=== PATIENT | male | born 1960 | race Caucasian/White ===

== ENCOUNTER 2017-11-26 06:34 | Observation (INO) | payer OTHER ==
[~2017-11-26] VITALS: Ht 182.9 cm; Wt 115.7 kg
--- OUTSIDE RECORDS SUMMARY | ~2017-11-26 | XMS | Clinical Summary ---
Demographics + + + | Address | [address] | | | [place] [address] | + + + | Home Phone | | + + + | Preferred Language | Unknown | + + + | Marital Status | Single | + + + | Cheondoism Affiliation | Unknown | + + + | Race | Unknown | + + + | Ethnic Group | Other Race | + + + Author + + + | Author | [facility] | + + + | Organization | [facility] | + + + | Address | Unknown | + + + | Phone | Unavailable | + + + Care Team Providers + +------+ + | Care Cleaner Laboratory Equipment Name | Role | Phone | + +------+ + PP | Unavailable | + +------+ + Source Comments LEIA is fully live on both [facility] and [facility] InPatient.[facility] Allergies Not on File Current Medications Not on file Active Problems Not on file Social History + +-------+ +--------+------+ | Tobacco Use | Types | Packs/Day | Years | Date | | | | | Used | | + +-------+ +--------+------+ | Never Assessed | | | | | + +-------+ +--------+------+ + + + | Sex Assigned at | Date Recorded | | | | + + + | Not on file | | + + + Plan of Treatment + + + + + | Health Maintenance | Due Date | Last Done | Comments | + + + + + | INFLUENZA VACCINE | | | | | (FLU SHOT) | 7 | | | + + + + + Results Not on filefrom Last 3 Months"
--- OUTSIDE RECORDS SUMMARY | ~2017-11-26 | XMS | Clinical Summary ---
Demographics + + + | Address | [address] | | | [place] [address] | + + + | Home Phone | | + + + | Preferred Language | Unknown | + + + | Marital Status | Single | + + + | Mandaeism Affiliation | Unknown | + + + | Race | Unknown | + + + | Ethnic Group | Other Race | + + + Author + + + | Author | [facility] | + + + | Organization | [facility] | + + + | Address | Unknown | + + + | Phone | Unavailable | + + + Care Team Providers + +------+ + | Care Owner/Operator Name | Role | Phone | + +------+ + PP | Unavailable | + +------+ + Source Comments LEIA is fully live on both [facility] and [facility] InPatient.[facility] Allergies Not on File Current Medications Not [...]
[~2017-11-26 06:34] MED LIST: CO Q-10100 MG PO; FLUVASTATIN SOD40 MG PO; VOLTAREN100 GM TOP
[2017-11-26] MEDS ORDERED: BAYER CHEWABLE81 MG PO (12:15)
[2017-11-26] MEDS ORDERED: MULTIVITAMINS1 EAC8 PO (12:16)
[2017-11-26] MEDS ORDERED: FISH OIL 1,0001 EAC2 PO (12:16)
--- NOTE | 2017-11-26 12:55 | NUR ---
PATIENT HERE TODAY FOR PREADMISSION APPOINTMENT. PATIENT IS SCHEDULED TO HAVE A RIGHT TOTAL KNEE REPLACMENT ON 12/09/17. HE STATES HIS WANDER OR MOTHER SADIE WILL BE HERE TO TRANSPORT HIM HOME AND GET HIM TO APPOINTMENTS. HE HAS A PHYSICAL THERAPY APPOINTMENT SET UP AT THE [facility] ON 11/27/17 AND WOULD LIKE TO CONTIUNE WITH PHYSICAL THERAPY POST OP THERE. HE HAS THREE STEPS INTO THE HOME WITH A HAND RAIL ON THE RIGHT SIDE. THERE ARE NO STAIRS INSIDE THE HOME. HE HAS A WALK IN SHOWER AND WILL LOOK INTO GETTING A SHOWER CHAIR AND HAND HELD SHOWER HEAD. HE STATES HE HAS A FRONT WHEELED WALKER THAT HIS WILL BRING IN ONCE HE IS ON THE MEDICAL FLOOR. THIS INFORMATION WILL BE SENT TO DR CORONA OFFICE AND TO [facility] FOR FURTHER FOLLOW UP.
--- NOTE | 2017-12-09 08:56 | NUR ---
12/09/17 0856 Netta Orozco 0836 PT ARRIVED ASLEEP, REPORT FROM ELECTRIC MULE OPERATOR. CYRO CUFF AND FOOT SCD PLACED ON RIGHT KNEE AND RIGHT FOOT. PT REACTIVE BUT VERY DROWSY. REORIENTED TO PACU. RESP EVEN AND UNLABORED. 0845 PT DDENIES PAIN AND NAUSEA. PT UNABLE TO FEEL OR MOVE TOES ON RIGHT FOOT. PT BACK TO SLEEP. VSS.
--- NOTE | 2017-12-09 09:45 | NUR ---
PT ARRIVED FROM PACU. PT AWAKE AND RESPONDING TO QUESTIONS. PT DENIES PAIN AND NAUSEA. PT TOLERATING PO WATER AND REQUESTS JELLO. PT UPDATED ON PLAN OF CARE AND VERBALIZES UNDERSTANDING. CRYO CUFF, SCD'S, HEEL PROTECTORS IN PLACE. AT BEDSDIE. BED RAILS UP. CALL LIGHT WITHIN REACH. PT HAS NO ADDITIONAL REQUESTS OR COMPLAINTS AT THIS TIME.
--- NOTE | 2017-12-09 10:53 | NUR ---
VITALS DUE. TORDOL DUE. PT VISITING WITH AND GUEST AT BEDSIDE. PT USING INCENTIVE SPIROMETER. VITALS TAKEN. ROOM AIR TRIAL ATTEMPTED. PT DROPS TO 89% ON ROOM AIR. 1L O2 TRIED. PT MAINTAINS AT 90% ON 1 L NC. PT RETURNED TO 2L O2 NC. PT MAINTAINING ABOVE 96% ON 2 L NC. PT TOLERATING PO JELLO AND CONTINUES TO DENY PAIN AND NAUSEA. PT VERBALIZES UNDERSTANDING OF PLAN OF CARE. BED RAILS UP. CALL LIGTH WITHIN REACH. PT STATES NO ADDITIONAL REQUESTS OR COMPLAINTS AT THIS TIME.
--- NOTE | 2017-12-09 11:45 | NUR ---
VITALS TAKEN. PT VISITING WITH . PT CONTINUES TO DENY PAIN AND NAUSEA. DIET PROGRESSED. PT TOLERATING CRACKERS AND PUDDING W/O NAUSEA. ROOM AIR TRIAL BEGAIN. PT MAINTAINING O2 SATURATIONS ABOVE 92% ON ROOM AIR. SPINAL RESOLVED. PT REPORTS "ONLY A LITTLE TINGLING" IN HIS FEET. PHYSICAL THERAPY PLANS TO GET PT UP LATER TODAY. ICE REPLACED IN CRYO CUFF. PT HAS NO ADDITIONAL REQUESTS OR COMPLAINTS AT THIS TIME. BED RAILS UP. CALL LIGHT WITHIN REACH.
--- NOTE | 2017-12-09 13:00 | NUR ---
PATIENT SITTING UP IN BED. CALL BUTTON REACH. FRESH ICE WATER GIVEN. ICE IN CRYO. VISITORS IN ROOM. NO OTHER NEEDS AT THIS TIME.
--- NOTE | 2017-12-09 13:56 | NUR ---
PT HAVING INSTRUCTION FROM Nadine VISITED WITH HEMANT. Adilson PLEASANT VISIT, EXTENDED A BLESSING TO THEM BOTH, WILL CONTINUE TO FOLLOW.
--- NOTE | 2017-12-09 14:15 | NUR ---
PT RESTING IN BED, INVITED ME IN. HEMANT IN RM. PT ALERT AND ORIENTED, AND DENIES PAIN AT THIS TIME. DISCUSSED PAIN CONTROL, HIS MENTIONED TO ME THAT SHE FEELS THAT MIGHT BE AN ISSUE. GOOD VISIT, PT REQUESTED PRAYER. WILL CONTINUE TO FOLLOW NEEDED
--- NOTE | 2017-12-09 14:44 | NUR ---
BLADDER SCAN DUE. PT REMAINS UNABLE TO VOID INDEPENDANTLY, OCCATIONAL INCONTENANCE. BLADDER SCAN PERFORMED. = 768ML. RIDDLE CATHETER ORDER REVIEWED. PT EDUCATION DONE. PT VERBALIZES UNDERSTANDING OF PROCEDURE AND STATES HIS QUESTIONS HAVE BEEN ANSWERED. MEDICATIONS GIVEN ORDERED. RIDDLE CATHETER PLACED PER PROTOCOL. 760ML OF YELLOW/ORANGE FLUID OBTAINED FROM RIDDLE CATHETER. PT TOLERATED PROCEEDURE WELL. CATHETER BALLOON INFLATED WITH 10ML. CATHETER SECURED WITH SECUREMENT DEVICE. PT WORKING WITH INCENTIVE SPIROMETER. PT STATES NO QUESTIONS OR CONCERNS AT THIS TIME. BED RAILS UP. CALL LIGHT WITHIN REACH.
--- NOTE | 2017-12-09 15:14 | NUR ---
PT PULSE OX ALARMING, PT STATES IT IS "ALARMING ALL THE TIME WHEN I TRY TO SLEEP." PULSE OX AT 88-89 WHEN PT DRIFTS OFF TO SLEEP. PT STARTED ON 2L O2 NC. PT MAITAINING ABOVE 90%. PT RESTING WITH EYES CLOSED. RR = 14 BPM. BED RAILS UP CALL LIGHT WITHIN REACH.
--- NOTE | 2017-12-09 15:27 | NUR ---
THIS RN ATTEMPTED TO CALL PTS TO BRING HIM HOME FLUVASTATIN. NO ANSWER AT THIS TIME.
--- NOTE | 2017-12-09 16:11 | NUR ---
PATIENT RESTING IN BED WITH EYES CLOSE. CALL BUTTON IN REACH. ICE IN CRYO. IN ROOM. NO OTHER NEEDS AT THIS TIME.
--- NOTE | 2017-12-09 17:01 | NUR ---
PT ARRIVED TODAY AFTER RIGHT TKA. DRESSING CDI. SPINAL RESOLVED. PT DENIES PAIN AND NAUSEA. PT UNABLE TO VOLUNTARILY VOID. INCONTINANT X2. BLADDER SCAN YEILDS 768ML. RIDDLE CATHETER PLACED, DRAINING TO GRAVITY. PHYSICAL THERAPY CONSULTED, PT HAS NOT BEEN OUT OF BED YET. PT MAINTAINS O2 SATURATION WHILE AWAKE BUT DESTATS WHEN SLEEPING. MAY NEED OXYGEN TONIGHT. 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 PT AND PARTICIPATING IN CARE. PTS TO BRING IN HOME MEDICATION (FLUVASTATIN) FOR USE TOMORROW).
--- NOTE | 2017-12-09 17:02 | NUR ---
PT REQUESTED TO HAVE OXYGEN OFF, PT OXYGEN SATURATION 94% ON ROOM AIR, NO CHANGE WHEN OXYGEN REMOVED, WILL MONITOR CLOSE. PT HAS CONTINUOUS PULSE OXIMETRY ON AT BEDSIDE TO ALARM.
--- NOTE | 2017-12-09 18:32 | NUR ---
PATIENT RESTING IN BED WITH EYES CLOSED. FRESH ICE WATER GIVEN. ICE IN CRYO. CALL BUTTON IN REACH. NO OTHER NEEDS AT THIS TIME.
--- NOTE | 2017-12-09 19:05 | NUR ---
RECEIVED REPORT FROM RN. PATIENT IS RESTING IN BED, BREATHING IS EVEN AND UNLABORED. O2 SATURATION IS 97% ON 2L O2 VIA NC. DENIES PAIN AT THIS TIME, HAS NO NEEDS. CALL LIGHT WITHIN REACH.
--- NOTE | 2017-12-09 22:15 | NUR ---
PATIENT RESTING COMFORTABLY IN BED, BREATHING IS EVEN AND UNLABORED. O2 SATURATION IS 95% ON 2L O2 VIA NC, PULSE IS 75. REPORTS 0/10 PAIN AT THIS TIME. ASSESSMENT DONE, MEDICATIONS GIVEN. CRYO-CUFF REFILLED. CALL LIGHT WITHIN REACH.
--- NOTE | 2017-12-09 23:18 | NUR ---
PATIENT RESTING COMFORTABLY IN BED, BREATHING IS EVEN AND UNLABORED. FLACC SCORE OF 0. O2 SATURATION IS 93% ON 2L O2, PULSE IS 73. CALL LIGHT WITHIN REACH, ALL ORDERS IN PLACE.
--- NOTE | 2017-12-10 02:45 | NUR ---
PATIENT RESTING COMFORTABLY IN BED, BREATHING IS EVEN AND UNLABORED. O2 SATURATION IS 92% ON 2L O2, PULSE IS 71. FLACC SCORE OF 0. CALL LIGHT WITHIN REACH, ALL ORDERS IN PLACE.
--- NOTE | 2017-12-10 04:54 | NUR ---
PATIENT RESTING COMFORTABLY IN BED, BREATHING IS EVEN AND UNLABORED. DENIES PAIN AT THIS TIME. ASSESSMENT DONE, MEDICATIONS GIVEN. CALL LIGHT WITHIN REACH, ALL ORDERS IN PLACE.
--- NOTE | 2017-12-10 05:02 | NUR ---
PATIENT'S NIGHT WAS UNEVENTFUL. HE HAS BEEN RESTING IN BED THROUGHOUT SHIFT. VSS, NO COMPLAINTS OF PAIN. ALERT AND ORIENTED, CALLS APPROPRIATELY. WEARS 2L O2 AT NIGHT, LUNGS ARE CLEAR. PATIENT HAS RIDDLE IN PLACE, WILL REMOVE THIS AM. PATIENT'S URINE OUTPUT HAS BEEN BORDERLINE LOW, ENCOURAGED PO FLUID INTAKE. DRESSING REMAINS CDI, CMS INTACT. IV IS SALINE LOCKED. NO ACUTE CHANGES FROM BEGINNING OF SHIFT.
--- NOTE | 2017-12-10 06:48 | NUR ---
PATIENT RESTING COMFORTABLY IN BED, BREATHING IS EVEN AND UNLABORED. REPORTS 1/ PAIN. DENIES NEEDS. CALL LIGHT WIHTIN REACH.
--- NOTE | 2017-12-10 07:23 | NUR ---
updated dr. walker regarding patient's low uring output. no new orders at this time.
--- NOTE | 2017-12-10 08:17 | NUR ---
MORNING ASSESSMENT AND MEDICATIONS DUE. PT SITTING UP IN BED, FINISHED WITH BREAKFAST. PT REPORTS 1/ PAIN THAT "ISN'T THAT BAD." PT DENIES NAUSEA. RIDDLE CATHETER WAS REMOVED BY LEANDRA HAAS AT 0650. PT DUE TO VOID. PT USING IS. ROOM AIR TRIAL BEGAN. PT MATAINING O2 ABOVE 90% ON ROOM AIR. ASSESSMENT DONE. MEDICATIONS GIVEN ORDERED (SEE MAR). PAIN MEDICATION GIVEN IN ANTICIPATION OF PHYSICAL THERAPY. RT AT BEDSIDE FOR CONSULTATION. CRYO CUFF, SCD'S, EMILIO HOSE, AND HEAL PROTECTORS IN PLACE. BED RAILS UP. CALL LIGTH WITHIN REACH. CO Q 10 NOT GIVEN AT THIS TIME BECAUSE IS BRINGING IN THE MEDICATION. MEDICATION TO BE GIVEN ONCE IT ARRIVES.
--- NOTE | 2017-12-10 08:35 | NUR ---
PT IN ROOM WORKING WITH PATIENT. NO NEEDS AT THIS TIME.
--- NOTE | 2017-12-10 09:26 | NUR ---
PATIENT UP IN CHAIR RESTING. ORAL CARE DONE. PATIENT JUST GOT DONE WORKING WITH PT. PATIENT STATES THAT HIS PAIN LEVEL IS A 1 OUT OF 10. LINENS CHANGED. BED BATH SET UP FOR PATIENT. CALL BUTTON WITHIN REACH. NO OTHER NEEDS AT THIS TIME.
--- NOTE | 2017-12-10 10:08 | NUR ---
MEDICATIONS DUE. PT UP TO CHAIR. REPORTS 1/10 PAIN AND DENIES NASUEA. PT REPORTS WALKING "AROUND THE YAN AND UP THE STAIRS" WITH PHYSICAL THERAPY WITH MINIMAL DISCOMFORT. MEDICATIONS GIVEN. AT BEDSIDE. ASKED IF SHE BROUGHT HOME MEDICATIONS. MEDICATIONS GIVEN TO THIS RN. MEDICATIONS PASSED TO PHARMACY FOR CHECKING AND DOSING. PT REMAINS IN CAHIR. CALL LIGHT WITHIN REACH. NO REQUESTS OR COMPLAINTS A THIS TIME. PT MAINTAINING AT 95% O2 SATURATION ON ROOM AIR.
--- NOTE | 2017-12-10 12:11 | NUR ---
THIS RN TO ROOM FOR FOCUSED ASSESSMENT. PT STATES HE HAS BEEN UNABLE TO VOID. PT ASSISTED UP TO RESTROOM WHERE HE VOIDS 50ML. BLADDER SCAN PERFORMED SHOWING 0ML, CONFIRMED BY 2ND RN. PT ASSISTED BACK TO CHAIR. FLUIDS ENCOURAGED. PAIN MEDICATION GIVEN FOR 2/10 PAIN AND ANTICIPATION OF PHYSICAL THERAPY. PT VISITING WITH . CALL LIGHT AND PERSONAL BELONGINGS WITHIN REACH.
--- NOTE | 2017-12-10 13:03 | NUR ---
PATIENTSITTING UP IN CHAIR READING A BOOK. FRESH ICE WATER GIVEN. ICE IN CRYO. CALL BUTTON IN REACH. PATIENT STATES HIS PAIN IS A 1 OUT OF 10. NO OTHER NEEDS AT THIS TIME. IN ROOM TO SEE PATIENT. IN ROOM.
--- NOTE | 2017-12-10 13:13 | NUR ---
PT SITTING IN CHAIR-ALERT, ORIENTED AND SUPPORTED BY AND MOTHER. PT RESTED WELL LAST NIGHT, AND P.T. TODAY WENT WELL IN HIS ESTIMATION. PT IS MOTIVATED TO LEAVE SOON POSSIBLE. EXTENDED A BLESSING, WILL FOLLOW NEEDED
--- NOTE | 2017-12-10 14:06 | NUR ---
TYLENOL DUE. PT ASSISTED UP TO RESTROOM. ABLE TO VOID INDEPENDANTLY, 100ML ORANGE URINE. PT PASSING GAS BUT NO BM AT THIS TIME. PT BACK TO CHAIR WITHOUT INCIDENT. TYLENOL GIVEN ORDERED (SEE MAR). CRYO CUFF IN PLACE. PULSE OX ON. PT STATES NO ADDITIONAL REQUESTS OR COMPLAINTS AT THIS TIME.
--- NOTE | 2017-12-10 16:05 | NUR ---
PAIN MEDICATION DUE. PT REPORTS 2/10 PAIN AND REQUESTS 10MG "THIS TIME." ASSESSMENT PERFORMED. DRESSING CDI. PT UP TO RESTROOM. VOIDS 300ML WITHOUT ISSUE. PT BACK TO CHAIR. DENIES WORSENING PAIN, DENIES NASUEA. MEDICATIONS GIVEN (SEE MAR). PT RESING IN CHAIR WORKING ON "MY PHYSICAL THERAPY APPOINTMENTS." CRYO CUFF REFILLED WITH ICE AND BACK ON PT. PT STATES NO ADDITIONAL REQUESTS OR COMPLAINTS AT THIS TIME.
--- NOTE | 2017-12-10 16:21 | NUR ---
PT HERE FOR RIGHT TOTAL KNEE REPLACEMENT. PT REPORTS 1-2/10 PAIN TODAY AND CONTINUES TO DENY NAUSEA. PAIN MEDICATIONS GIVEN Q4 HOURS AND SCHEDULED MEDS. PT TOLERATING REGULAR DIET WELL. PT UP WITH PHYSICAL THERAPY X2 TODAY, TOLERATED WELL. PT VOIDING VOLUNTARILY. CONTINUE TO MONITOR FOR URINE OUTPUT. ENCOAURGE FLUIDS. PT 1 PERSON STAND BY ASSIST WITH FWW. SALINE LOCK RIGHT HAND, WNL.
--- NOTE | 2017-12-10 17:18 | NUR ---
PATIENT IS RESTING IN CHAIR WATCHING TV. PATIENTS IN ROOM. FRESH ICE WATER. CHECKED CRYO, PATIENT STATED IT WAS JUST FILLED WITH ICE. CALL BUTTON WITHIN REACH. NO OTHER NEEDS AT THIS TIME.
--- NOTE | 2017-12-10 19:15 | NUR ---
RECEIVED REPORT FROM RN. PATIENT IS RESTING COMFORTABLY IN CHAIR TALKING WITH FAMILY. ASSISTED TO BATHROOM WITH SBA/FWW. DENIES FURTHER NEEDS. CALL LIGHT ALICIAHTIN MERVIN.
--- NOTE | 2017-12-10 19:15 | NUR ---
HAND OFF REPORT GIVEN TO LEANDRA HAAS. PT REQUESTS ASSISTANCE UP TO RESTROOM. VOIDS WITHOUT ISSUE. PT BACK TO BED. CRYO CUFF, SCD'S, HEEL PROTECTORS. IN PLACE. BED RAILS UP. CALL LIGTH WITHIN REACH. FAMILY AT BEDSIDE.
--- NOTE | 2017-12-10 20:59 | NUR ---
PATIENT GIVEN PRN PAIN MEDICATION PER ORDER FOR 4/10 PAIN IN HIS RIGHT KNEE. PATIENT ASSISTED TO THE RESTROOM A SBA W/FWW. PATIENT TOLERATED AMBULATION WELL. PATIENT IS NOW BACK IN BED RESTING. PATIENT DENIES ANY FURTHER NEEDS. CALL LIGHT IN REACH. CRYO IN PLACE, SCDS ON AND PULSE OX IN USE.
--- NOTE | 2017-12-10 21:30 | NUR ---
PATIENT RESTING IN BED, BREATHING IS EVEN AND UNLABORED. O2 SATURATION IS 96% ON ROOM AIR. REPORTS 3/10 PAIN. SCHEDULED PAIN MEDICATION GIVEN. ASSESSMENT DONE. PATIENT DENIES FURTHER NEEDS. CALL LIGHT WITHIN REACH, ALL ORDERS IN PLACE.
--- NOTE | 2017-12-10 23:47 | NUR ---
PATIENT ASSISTED TO BATHROOM WITH 1PA/FWW. REPORTS 2/10 PAIN IN RIGHT KNEE. DENIES FURTHER NEEDS AT THIS TIME. NOW RESTING IN BED COMFORTABLY, BREATHING IS EVEN AND UNLABORED. O2 SATURATION IS 95% ON 2L, REQUIRES O2 WHILE ASLEEP. CALL LIGHT WITHIN REACH, ALL ORDERS IN PLACE.
--- NOTE | 2017-12-11 02:38 | NUR ---
PATIENT ASSISTED TO THE RESTROOM. PATIENT IS A SBA W/FWW. PATIENT WAS ABLE TO VOID. PATIENT IS NOW BACK IN BED RESTING. PATIENT HAS SCDS IN PLACE AND HEEL PROTECTORS ON. PATIENT HAS CRYO APPLIED TO HIS RIGHT KNEE. PATIENT GIVEN PRN PAIN MEDICATION FOR 4/10 PAIN IN HIS RIGHT KNEE. PATIENTS ICE WATER REFILLED. PATIENT DENIES ANY FURTHER NEEDS. CALL LIGHT IN REACH.
--- NOTE | 2017-12-11 04:40 | NUR ---
PATIENT RESTING COMFORTABLY IN BED, BREATHING IS EVEN AND UNLABORED. REPORTS 2/10 PAIN IN RIGHT KNEE, TORDOL GIVEN PER EMAR. DENIES FURTHER NEEDS. CALL LIGHT WITHIN REACH.
--- NOTE | 2017-12-11 06:13 | NUR ---
PATIENT RESTING COMFORTABLY IN BED, BREATHING IS EVEN AND UNLABORED. O2 SATURATION IS 93% ON ROOM AIR. REPORTS 2/10 PAIN IN RIGHT KNEE. PRN OXYCODONE AND SCHEDULED TYLENOL GIVEN. DENIES FURTHER NEEDS. CALL LIGHT WITHIN REACH.
--- NOTE | 2017-12-11 06:26 | NUR ---
ASSISTED PATIENT TO BATHROOM WITH SBA/FWW. TOLERATED WELL. NOW RESTING IN CHAIR, BREATHING IS EVEN AND UNLABORED. DENIES FURTHER NEEDS AT THIS TIME. CALL LIGHT WITHIN REACH.
[2017-12-11] MEDS ORDERED: XARELTO10 MG PO (07:26)
[2017-12-11] MEDS ORDERED: OXYCODONE HCL5 MG PO (07:26)
[2017-12-11] MEDS ORDERED: MIRALAX17 GM PO (07:27)
--- NOTE | 2017-12-11 07:30 | NUR ---
ROUNDED WITH DR. CORONA IN ROOM. DISCHARGE PLANS DISCUSSED. DR. CORONA D/C'D PRESSURE DRESSING AT THIS TIME. PATIENT STATING PAIN 11/16. NEW DRESSING OF MEPILEX AND ODILIA WRAP APPLIED. KNEE HIGH EMILIO APPLIED. PATIENT TOLERATED WELL. BROUGHT A CUP OF COFFEE TO PATIENT. PATIENT CURRENTLY SITTING UP IN CHIAR WITH LEGS UP.
--- NOTE | 2017-12-11 07:40 | NUR ---
PATIENT SITTING UP IN CHAIR, FRESH COFFEE AND ICE WATER GIVEN. PATIENT WOULD LIKE TO DO AM CARE AFTER BREAKFAST. DR WAS JUST IN AND REMOVED BANDAGE. CALL LIGHT IN REACH. NO OTHER NEEDS
--- NOTE | 2017-12-11 08:04 | NUR ---
FAXED CHART NOTES AND ORDER TO [facility] OP PT. THESE INCLUDED FACESHEET, ORDER H AND P X 2, PROG NOTES, PT AND OT EVAL AND NOTES TO [facility] OP PT. CALLED AND CONFIRMED THIS WITH DANIEL AT [facility] OP PT. RECIEVED FAX CONFIRMATION.
--- NOTE | 2017-12-11 08:32 | NUR ---
patient sitting in chair. legs up. morning medication given. patient stating pain continues to be at 2/10. plan of care discussed. plan to work with pt at 0900ish and have more pain medication before and after pt. patient requesting to wait for his for discharge instructions. she will be here this afternoon. patient tolerated 100 percent of breakfast. patient stating he has not had a stool yet, educated about stool softener at discharge. miralax given this am.
--- NOTE | 2017-12-11 08:55 | NUR ---
PATIENT CURRENTLY WORKING WITH PT IN TREATMENT ROOM. TOLERATING WELL.
--- NOTE | 2017-12-11 09:35 | NUR ---
TORADOL GIVEN. PATIENT TOLERATED PT WELL. STATING PAIN AFTER HIS WORKOUT WAS 2/10. PATIENT SITTING IN CHAIR. SET UP WITH TOOTH BRUSH AND CLOTH FOR WASHING FACE. NO OTHER NEEDS AT THIS TIME.
--- NOTE | 2017-12-11 10:11 | NUR ---
PATIENT SITTING IN CHAIR, EYES CLOSED. VITALS DONE, RN CAYLA IN ROOM TO TALK ABOUT DISCHARGE. CRYO FILLED. CALL LIGHT IN REACH. NO OTHER NEEDS.
--- NOTE | 2017-12-11 10:29 | NUR ---
PATIENT STATING HE IS COMFORTABLE AT THIS TIME. WOULD LIKE TO HOLD OFF ON PAIN MEDICATION UNTIL TIME TO DISCHARGE. WAITING PATIENTS BEFORE DISCHARGE EDUCATION TO BE GIVEN.
--- NOTE | 2017-12-11 10:59 | NUR ---
PATIENT ASSISTED TO THE BR. PATIENT VOIDED. ASSISTED BACK TO BED. CHANGED INTO OWN CLOTHING. IV TAKEN OUT. AWAITING AT THIS TIME.
--- NOTE | 2017-12-11 11:10 | NUR ---
PT SITTING IN CHAIR-READY TO BE DC'D. HE MENTIONED THAT HE THOUGHT P.T. WENT WELL THIS AM. STAIRS NO PROBLEM, HE DOESNOT DO WELLL SITTING STILL. PT ALSO MENTIONED THAT HE GOT VERY LITTLE SLEEP LAST NIGHT. VERY POSITIVE-SHOULD REHAB WELL , VERY MOTIVATED. GOD BLESS HIM
--- NOTE | 2017-12-11 12:18 | NUR ---
PHARMACY IN ROOM TO GO OVER DISCHARGE MEDICATIONS WITH PATIENTS.
--- NOTE | 2017-12-23 07:09 | OR ---
[facility] [address] [place] [address] Signed DATE OF OPERATION: 12/09/2017 SURGEON: Moraima Roper MD PREOPERATIVE DIAGNOSIS: Severe degenerative joint disease, both knees. POSTOPERATIVE DIAGNOSIS: Severe degenerative joint disease, both knees. PROCEDURE PERFORMED: Right total knee arthroplasty with computer navigation. BOXING INSTRUCTOR: Alexandria Noriega PA-C. Alexandria was present in critical positioning, retraction, and wound closure. ANESTHESIA: Spinal. BLOOD LOSS: Minimal. TOURNIQUET TIME: 59 minutes. IMPLANTS: Hallie Triathlon size #7 with 11 mm insert and 35 mm patella. BRIEF HISTORY: Albert is a 57-year-old gentleman with progressive worsening of arthritis and complete loss of medial cartilage. Risks and benefits of operative treatment were discussed with him and he elected to proceed. DESCRIPTION OF PROCEDURE: Once consent was obtained, he was taken to the operating room. After adequate anesthesia, he was placed on the operating room table. All downside pressure points well padded. The left hip was placed on a bump and a tourniquet was placed around the proximal thigh. The leg was then prepped and draped in a standard sterile fashion. The leg was exsanguinated using Esmarch bandage. Tourniquet inflated to 250 mmHg. The Electronically Signed By: MORAIMA ROPER MD 12/23/17 0709 PATIENT NAME: ALBERT SCHUMACHER DERRICK OPERATIVE REPORT DATE OF : 64 REPORT #: [id number] PHYSICIAN: MORAIMA ROPER MD PCP: ANKIT ANTUNEZ DO REPORT IS CONFIDENTIAL AND NOT TO BE RELEASED WITHOUT AUTHORIZATION [facility] [address] [place], [place] [address] Signed patient was not given any preoperative due to a history of heterozygosity for Factor V Leiden disease. The knee was approached through standard anterior curved incision and was taken through the skin and subcutaneous tissue, and median parapatellar arthrotomy was performed. The infrapatellar fat pad was excised and the MCL was elevated of a sleeve subperiosteally around the level of the posterior corner. The anterior horns of the menisci were transected. The PCL was found to be intact. The ACL was transected. The knee was then flexed. Navigation guide was pinned to the femur and the femur was registered with the computer. The cutting block was then pinned in neutral alignment and the distal femoral cut was made. The bone quality was quite good. The femur was then sized to a #7. The #7 AP cutting block was pinned in alignment with epicondylar axis and the anterior, posterior, and chamfer cuts were made. The bone was excised as were any remaining osteophytes. Attention was then turned to proximal tibia. The navigation guide was pinned to the proximal tibia and the tibia was registered with the computer. The cut was made with care taken to protect the patellar tendon and MCL. Bone was excised as were any meniscal remnants. Posterior release was performed off the femur. Posterior osteophytes removed. Flexion and extension gaps were sized, found to be symmetric at 11 mm. The trials were positioned. The knee was taken through range of motion and found to be quite stable. The patella was cut, sized, and drilled for 35 patella. The drill holes on the distal femur were then made and the trials removed. The proximal tibia was finished using the keel punch. The bone surfaces were pulse lavaged and packed with dry Ray-Ernie. The cement was then mixed and reached proper consistency, displaced all implants on all bone surfaces. The tibia was impacted into position first followed by the polyethylene. All excess cement was removed. The femur was impacted next and again any remaining cement was removed. The knee was extended and nicely loaded. The patella was clamped and any remaining cement was removed. The knee was pulse lavaged at intervals throughout the procedure. A total of 2 L antibiotic irrigation was used. The knee was flexed and the remaining cement was removed using osteotomes. The knee was injected with 100 mL ropivacaine and Toradol mixture in periarticular fashion. The arthrotomy was closed using #2 StrataFix, the subcutaneous tissue with 0 StrataFix, and the skin was then stapled. The wound was dressed with a Mepilex Ag dressing and a bulky Marroquin dressing again due to his bleeding disorder. He was awakened and taken to recovery in satisfactory condition. All sponge, needle, and instrument counts were correct. Moraima Roper MD BA/MODL /[id number] Electronically Signed By: MORAIMA ROPER MD 12/23/17 0709 PATIENT NAME: ALBERT SCHUMACHER OPERATIVE REPORT DATE OF : 64 REPORT #: [id number] PHYSICIAN: MORAIMA ROPER MD PCP: ANKIT ANTUNEZ DO REPORT IS CONFIDENTIAL AND NOT TO BE RELEASED WITHOUT AUTHORIZATION [address] [address] Signed Copies: ~ Electronically Signed By: MORAIMA ROPER MD 12/23/17 0709 PATIENT NAME: ALBERT SCHUMACHER DERRICK OPERATIVE REPORT DATE OF : 64 REPORT #: [id number] PHYSICIAN: MORAIMA ROPER MD PCP: ANKIT ANTUNEZ DO REPORT IS CONFIDENTIAL AND NOT TO BE RELEASED WITHOUT AUTHORIZATION
== END 2017-12-11 12:35 | disposition home or self-care (01) ==
LOC: MS 12-09 05:45 → DSVR 12-09 05:45 → MS 12-09 05:45 → EDSTATUS 12-09 06:45 → MS 12-09 06:45 → DSVR 12-09 09:38 → MS 12-11 12:35
PROVIDERS: ADMIT Specialist
PROC: 3E0T3BZ Introduction of Anesthetic Agent into Peripheral Nerves and Plexi, Percutaneous Approach (ICD-10-PCS; 2017-12-09)
PROC: 3E0T33Z Introduction of Anti-inflammatory into Peripheral Nerves and Plexi, Percutaneous Approach (ICD-10-PCS; 2017-12-09)
PROC: 8E0YXBZ Computer Assisted Procedure of Lower Extremity (ICD-10-PCS; 2017-12-09)
PROC: 0SRC0J9 Replacement of Right Knee Joint with Synthetic Substitute, Cemented, Open Approach (ICD-10-PCS; principal; 2017-12-09 06:45)
DX: M17.0 Bilateral primary osteoarthritis of knee (principal); G89.18 Other acute postprocedural pain; D68.51 Activated protein C resistance; E78.5 Hyperlipidemia, unspecified; Z88.0 Allergy status to penicillin; Z88.8 Allergy status to other drugs, medicaments and biological substances; Z79.82 Long term (current) use of aspirin; Z79.899 Other long term (current) drug therapy
CPT/HCPCS: 01402; 36415; 64447; 64450; 76942; 80048; 85025; 96374; 96375; 96376; 97110; 97116; 97163; 97530; C1713; C1776; G0378; J0690; J1100; J1885; J2250; J2274; J2704; J2795; J3010; J7120

== ENCOUNTER 2024-10-29 05:50 | Day surgery (SDC) | payer OTHER ==
[2024-10-26 14:39] VITALS: BP 92/62
[~2024-10-29] VITALS: Ht 182.9 cm; Wt 118.2 kg
[~2024-10-29 05:50] MED LIST changes: +BAYER CHEWABLE81 MG PO; +FISH OIL 1,0001 EAC2 PO; +GABAPENTIN600 MG PO; +LIPITOR40 MG PO; +MAPAP500 M1 PO; +MIDAZOLAM HCL 5 MG/5 ML VIAL IV PRN; +MIRALAX17 GM PO; +MULTIVITAMINS1 EAC8 PO; +OXYCODONE HCL5 MG PO; +SENNA LAX8.6 MG PO; +TAMSULOSIN HCL0.4 MG PO; +XARELTO10 MG PO; +fentaNYL citrate 100 MCG/2 ML VIAL IV PRN
[2024-10-29 06:06] VITALS: BP 143/96
[2024-10-29] MEDS ORDERED: LACTATED RINGER'S 1,000 ML IV SCH (07:00)
[2024-10-29] MEDS ORDERED: LIDOCAINE HCL 1% 5 ML SDV INJ ONE (07:00)
[2024-10-29] MEDS ORDERED: IBLOOD GLUCOSE TEST STRIP 1 EA TEST VI PRN (07:00)
[2024-10-29] MEDS ORDERED: CEFAZOLIN SODIUM 2 GM/20 ML SYR IV SCH (07:00)
[2024-10-29] MEDS ORDERED: propofoL 200 MG/20 ML VIAL ONE (07:15)
[2024-10-29] MEDS ORDERED: LIDOCAINE HCL 2% 5 ML SDV ONE (07:15)
[2024-10-29] MEDS ORDERED: fentaNYL citrate 100 MCG/2 ML VIAL ONE (07:16)
--- NOTE | 2024-10-29 07:18 | NUR ---
VISITED DURING SPIRITUAL CARE ROUNDS. PT SUPPORTED BY IN ROOM, NO IMMEDIATE NEEDS, NO OVERT SIGNS OF DISTRESS. KEG FILLER PROVIDED SUPPORTIVE PRESENCE, HOSPITALITY, PRAYER, FACILITATED INTERACTION WITH THERAPY ANIMAL. PT AND EXPRESSED GRATITUDE.
--- NOTE | 2024-10-29 07:50 | NUR ---
10/29/24 1043 Goldie Marquez 1934-PATIENT ARRIVED TO PACU NONAROUSABLE 6L MASK 93% RR EVEN. PATIENT DOES HAVE HISTORY OF SLEEP APNEA. PATIENT LAYING LEFT LATERAL ABDOMEN SOFT IVF INFUSING. SR.
[2024-10-29 08:34] VITALS: BP 112/70
--- NOTE | 2024-10-29 08:51 | OR ---
[facility] [address] [place], [place] [address] Signed DATE OF OPERATION: 10/29/2024 SURGEON: Rhiannon Hernandez MD PREOPERATIVE DIAGNOSES: 1. Screening. 2. Diverticulosis. 3. Internal anal skin tags. POSTOPERATIVE DIAGNOSES: 1. Fabgazo-al-lgyyvonm sigmoid diverticulosis. 2. Eoqpugv-sp-rsszwdfz anal skin tags x2. PROCEDURE: Colonoscopy without biopsy. ESTIMATED BLOOD LOSS: None. INDICATIONS: Albert is a 64-year-old gentleman asked to see me for a followup colonoscopy. I helped him with his initial screening colonoscopy in 2013 at the age of 54. He had internal anal skin tags and a little bit of diverticulosis. He has been on the 10 year plan. He has no family history of colon cancer or polyps. He has lower GI complaints. In the office, I did give him a pamphlet on colonoscopy. He recalls the nature of the test. There is risk including, but not limited to gas bloating, crampy abdominal pain, bleeding, perforation requiring surgery, and missed diagnosis. We also reviewed the written instructions for his bowel prep line by line, it is the same bowel prep he took previously. Also, he now has sleep apnea and has to use a CPAP mask. He is also little overweight and has a large round full face, neck and chest. Therefore, we asked for monitored anesthesia care with propofol infusion, that worked out quite nicely. He also has had bilateral knee replacements. He therefore received Ancef before the procedure. He had expressed understanding and wished to proceed. PROCEDURE IN DETAIL: Albert was taken into our endoscopy suite, placed in the left lateral decubitus position. He was given monitored anesthesia care propofol infusion per our nurse computational physicist. A digital rectal exam was performed. I saw one mvqlzrt-ax-iefzcqvm external anal skin tag on the right. He had good sphincter tone. There were no masses. His prostate is absent. The adult colonoscope was introduced and advanced under direct Electronically Signed By: RHIANNON HERNANDEZ MD 10/29/24 0851 PATIENT NAME: ALBERT SCHUMACHER OPERATIVE REPORT DATE OF : 64 REPORT #: [id number] PHYSICIAN: RHIANNON HERNANDEZ MD PCP: LORI TOWNSEND PA-C REPORT IS CONFIDENTIAL AND NOT TO BE RELEASED WITHOUT AUTHORIZATION [facility] [address] [place], [place] [address] Signed visualization of camera. It took just a little extra propofol and some abdominal compression to get the scope around and into the cecum itself. He had a few areas where we had to irrigate and suction out. Eventually, we could see the appendiceal orifice and ileocecal valve. The scope was then slowly withdrawn. He does have some diverticula in the sigmoid colon. They are moderate size, few in number, and scattered about. Inside the rectum, the scope was retroflexed and he had another internal anal skin tag minimal to moderate in size. After this, the gas was suctioned out and the colonoscope removed. Albert tolerated the procedure quite well. RECOMMENDATIONS: Albert can return in 10 years for repeat screening colonoscopy. It looks like he will need monitored anesthesia care in the future as well. Rhiannon Hernandez MD ALB/MODL /[id number] cc: Rhiannon Hernandez MD Patient Chart Lori Townsend PA-C Copies: RHIANNON HERNANDEZ MD, CHLOE K PA-C ~ Electronically Signed By: RHIANNON HERNANDEZ MD 10/29/24 0851 PATIENT NAME: ALBERT SCHUMACHER OPERATIVE REPORT DATE OF : 64 REPORT #: [id number] PHYSICIAN: RHIANNON HERNANDEZ MD PCP: LORI TOWNSEND PA-C REPORT IS CONFIDENTIAL AND NOT TO BE RELEASED WITHOUT AUTHORIZATION
== END 2024-10-29 08:40 | disposition home or self-care (01) ==
LOC: DS 05:50
PROVIDERS: ATTEND Colon & Rectal Surgery
PROC: 0DJD8ZZ Inspection of Lower Intestinal Tract, Via Natural or Artificial Opening Endoscopic (ICD-10-PCS; principal; 2024-10-29 07:30)
DX: Z12.11 Encounter for screening for malignant neoplasm of colon (principal); K57.30 Diverticulosis of large intestine without perforation or abscess without bleeding; K64.8 Other hemorrhoids; N40.0 Benign prostatic hyperplasia without lower urinary tract symptoms; E78.5 Hyperlipidemia, unspecified; G47.33 Obstructive sleep apnea (adult) (pediatric); E66.9 Obesity, unspecified; Z68.34 Body mass index [BMI] 34.0-34.9, adult; Z88.0 Allergy status to penicillin; Z88.8 Allergy status to other drugs, medicaments and biological substances; Z99.89 Dependence on other enabling machines and devices
CPT/HCPCS: 00812; J0690; J2003; J2704; J3010; J7121